=== PATIENT | male | born 1955 | race Caucasian/White ===

== ENCOUNTER → 2020-03-26 | Outpatient (CLI) | payer MEDICARE, OTHER | END | disposition home or self-care (01) | LOC: LAB SHORT 07:15 → LAB 07:15 | DX: D04.62 Carcinoma in situ of skin of left upper limb, including shoulder (principal); L57.0 Actinic keratosis | CPT/HCPCS: 88305 ==

== ENCOUNTER → 2020-04-20 | Outpatient (CLI) | payer MEDICARE, OTHER | END | disposition home or self-care (01) | LOC: LAB 16:02 → LAB SHORT 16:02 | DX: D22.5 Melanocytic nevi of trunk (principal) | CPT/HCPCS: 88305 ==

== ENCOUNTER → 2021-02-02 | Outpatient (CLI) | payer MEDICARE, OTHER | END | disposition home or self-care (01) | LOC: LAB 11:19 → LAB SHORT 11:19 | DX: D48.5 Neoplasm of uncertain behavior of skin (principal) | CPT/HCPCS: 88305 ==

== ENCOUNTER 2021-09-12 06:37 | Day surgery (SDC) | payer MEDICARE, OTHER ==
[~2021-09-12] VITALS: Ht 190.5 cm; Wt 129.3 kg
[2021-09-12] MEDS ORDERED: Prinivil10 MG (06:56)
[2021-09-12] MEDS ORDERED: ATOR80 (06:56)
[2021-09-12] MEDS ORDERED: TAMS.4ER (06:57)
[2021-09-12] MEDS ORDERED: XARELTO20 MG (06:57)
[2021-09-12] MEDS ORDERED: SYMBICORT 160-4.6 GM (06:57)
[2021-09-12] MEDS ORDERED: TIOT18 (06:58)
--- NOTE | 2021-09-12 07:29 | NUR ---
09/12/21 0729 ALEK MOHAMUD 2 ATTEMPTS AT IV. FIRST ATTEMPT BY MA IN R HAND INFILTRATED. SECOND ATTEMPT BY MA IN R FOREARM SUCCESSFUL.
== END 2021-09-12 10:12 | disposition home or self-care (01) ==
LOC: ORSCSDS 06:37
DX: R19.7 Diarrhea, unspecified (principal); K21.9 Gastro-esophageal reflux disease without esophagitis; R19.5 Other fecal abnormalities; Z86.010 Personal history of colon polyps; K22.70 Barrett's esophagus without dysplasia; K31.7 Polyp of stomach and duodenum; D12.2 Benign neoplasm of ascending colon; D12.4 Benign neoplasm of descending colon; D12.5 Benign neoplasm of sigmoid colon; K62.5 Hemorrhage of anus and rectum; K62.1 Rectal polyp; K64.4 Residual hemorrhoidal skin tags; I10 Essential (primary) hypertension; I48.91 Unspecified atrial fibrillation; Z79.01 Long term (current) use of anticoagulants; Z87.891 Personal history of nicotine dependence; J44.9 Chronic obstructive pulmonary disease, unspecified; G47.33 Obstructive sleep apnea (adult) (pediatric); Z79.899 Other long term (current) drug therapy; E66.9 Obesity, unspecified; Z68.35 Body mass index [BMI] 35.0-35.9, adult
CPT/HCPCS: 88305; 88342; 93005; 93010; J0461; J2704; J7120

== ENCOUNTER 2023-08-31 16:24 | Emergency (ER) | payer MEDICARE, OTHER ==
[~2023-08-31] VITALS: Ht 195.6 cm; Wt 136.1 kg
[~2023-08-31 16:24] MED LIST changes: -ATOR80; +ATOR80 PO; -CEPH500 PO; -METF500C PO; -METO25ER PO; -OMEP20ER PO; -PREG75 PO; -Prinivil10 MG; +Prinivil10 MG PO; -SULTRIDS PO; -TAMS.4ER; +TAMS.4ER PO; -TRELEGY ELLIPT1 EAC1 INH; -XARELTO20 MG; +XARELTO20 MG PO
[2023-08-31] MEDS ORDERED: CefTRIAXone Sodium 1,000 MG in NS 100 ML IV ONE (17:50)
[2023-08-31] MEDS ORDERED: NS 1,000 ML IV SCH (21:05)
[2023-08-31 22:45] VITALS: BP 107/89
[2023-08-31] MEDS ORDERED: CEPH500 PO (23:06)
[2023-08-31] MEDS ORDERED: SULTRIDS PO (23:06)
[2023-09-01] MEDS ORDERED: PREG75 PO (16:15)
[2023-09-01] MEDS ORDERED: OMEP20ER PO (16:15)
[2023-09-01] MEDS ORDERED: METO25ER PO (16:16)
[2023-09-01] MEDS ORDERED: METF500C PO (16:16)
[2023-09-01] MEDS ORDERED: TRELEGY ELLIPT1 EAC1 INH (22:25)
== END 2023-08-31 23:20 | disposition home or self-care (01) ==
LOC: ER 16:24
DX: L03.317 Cellulitis of buttock (principal); A41.9 Sepsis, unspecified organism; E66.9 Obesity, unspecified; R00.0 Tachycardia, unspecified; Z88.0 Allergy status to penicillin; Z91.030 Bee allergy status; Z79.899 Other long term (current) drug therapy
CPT/HCPCS: 80053; 83605; 85025; 87040; 87076; 93005; 93010; 96365; 99284-25; J0696; J7030

== ENCOUNTER → 2023-08-31 | Outpatient (CLI) | payer MEDICARE, OTHER ==
[~2023-08-31] MED LIST: ATOR80; CEPH500 PO; METF500C PO; METO25ER PO; OMEP20ER PO; PREG75 PO; Prinivil10 MG; SULTRIDS PO; SYMBICORT 160-4.6 GM; TAMS.4ER; TIOT18; TRELEGY ELLIPT1 EAC1 INH; XARELTO20 MG
[2023-08-31 15:54] LABS: BASOPHILS ABSOLUTE AUTO 0.02 K/mm3 (0.00-0.23); BASOPHILS PERCENT AUTO 0 % (0-2); EOSINOPHILS ABSOLUTE AUTO 0.02 K/mm3 (0.00-0.68); EOSINOPHILS PERCENT AUTO 0 % (0-6); Hematocrit 44.1 % (37.0-53.0); Hemoglobin 14.5 g/dL (13.5-17.5); IMMATURE GRAN ABSOLUTE AUTO 0.05 K/mm3 (0.00-0.10); IMMATURE GRAN PERCENT AUTO 0 % (0-1); LYMPHOCYTES ABSOLUTE AUTO 0.75 K/mm3 (0.84-5.20); LYMPHOCYTES PERCENT AUTO 6 % (21-46); MONOCYTES ABSOLUTE AUTO 0.71 K/mm3 (0.16-1.47); MONOCYTES PERCENT AUTO 6 % (4-13); Mean Corpuscular HGB 32.3 pg (26.0-34.0); Mean Corpuscular HGB Conc 32.9 g/dL (31.5-36.5); Mean Corpuscular Volume 98 fL (80-100); Mean Platelet Volume 10.6 fL (9.1-12.4); NEUTROPHILS ABSOLUTE AUTO 10.55 K/mm3 (1.96-9.15); NEUTROPHILS PERCENT AUTO 87 % (41-73); Platelet Count 175 K/mm3 (150-400); RDW Coefficient Variation 12.7 % (11.7-14.2); RDW Standard Deviation 45.5 fL (35.1-46.3); Red Blood Cell Count 4.49 M/mm3 (4.30-5.90)
[2023-08-31 16:08] LABS: Albumin, Blood 3.9 g/dL (3.4-5.0); Albumin/Globulin Ratio 1.1 (0.8-1.8); Bilirubin, Total 1.1 mg/dL (0.1-1.0); Bun/Creatinine Ratio 11.8 (12.0-20.0); Calcium, Blood 9.6 mg/dL (8.5-10.1); Creatinine, Blood 1.36 mg/dL (0.60-1.20); Globulin, Blood 3.7 g/dL (2.2-4.0); Potassium, Blood 4.8 mmol/L (3.5-5.5); Total Protein, Blood 7.6 g/dL (6.4-8.2)
== END | disposition home or self-care (01) ==
LOC: LAB SHORT 15:51
PROVIDERS: Emergency Medicine
DX: A41.9 Sepsis, unspecified organism (principal); R00.0 Tachycardia, unspecified
CPT/HCPCS: 80053; 85025; 87040; 87076

== ENCOUNTER 2023-09-01 14:48 | Inpatient (IN) | payer MEDICARE, OTHER ==
[~2023-09-01] VITALS: Ht 190.5 cm; Wt 140.6 kg
[2023-09-01] VITALS (7 sets, daily range): BP systolic 80–127; BP diastolic 50–109
[~2023-09-01 14:48] MED LIST changes: +CEPH500 PO; +SULTRIDS PO
[2023-09-01 15:47] LABS: BASOPHILS ABSOLUTE AUTO 0.02 K/mm3 (0.00-0.23); BASOPHILS PERCENT AUTO 0 % (0-2); EOSINOPHILS ABSOLUTE AUTO 0.01 K/mm3 (0.00-0.68); EOSINOPHILS PERCENT AUTO 0 % (0-6); Hematocrit 38.3 % (37.0-53.0); Hemoglobin 12.8 g/dL (13.5-17.5); IMMATURE GRAN ABSOLUTE AUTO 0.11 K/mm3 (0.00-0.10); IMMATURE GRAN PERCENT AUTO 1 % (0-1); LYMPHOCYTES PERCENT AUTO 7 % (21-46); MONOCYTES ABSOLUTE AUTO 0.82 K/mm3 (0.16-1.47); MONOCYTES PERCENT AUTO 7 % (4-13); Mean Corpuscular HGB 32.8 pg (26.0-34.0); Mean Corpuscular HGB Conc 33.4 g/dL (31.5-36.5); Mean Corpuscular Volume 98 fL (80-100); Mean Platelet Volume 11.3 fL (9.1-12.4); NEUTROPHILS ABSOLUTE AUTO 10.27 K/mm3 (1.96-9.15); NEUTROPHILS PERCENT AUTO 85 % (41-73); Platelet Count 160 K/mm3 (150-400); RDW Coefficient Variation 12.8 % (11.7-14.2); RDW Standard Deviation 45.6 fL (35.1-46.3); White Blood Cell Count 12.03 K/mm3 (4.00-11.30)
[2023-09-01 15:57] LABS: Albumin, Blood 3.3 g/dL (3.4-5.0); Albumin/Globulin Ratio 0.9 (0.8-1.8); Bilirubin, Total 0.8 mg/dL (0.1-1.0); Bun/Creatinine Ratio 15.8 (12.0-20.0); Creatinine, Blood 1.39 mg/dL (0.60-1.20); Globulin, Blood 3.6 g/dL (2.2-4.0); Total Protein, Blood 6.9 g/dL (6.4-8.2)
[2023-09-01] MEDS ORDERED: PREG75 PO (16:15)
[2023-09-01] MEDS ORDERED: OMEP20ER PO (16:15)
[2023-09-01] MEDS ORDERED: METO25ER PO (16:16)
[2023-09-01] MEDS ORDERED: METF500C PO (16:16)
[2023-09-01] MEDS ORDERED: TRELEGY ELLIPT1 EAC1 INH (22:25)
[2023-09-02] VITALS (52 sets, daily range): BP systolic 82–145; BP diastolic 39–118
[2023-09-02 04:02] LABS: BASOPHILS ABSOLUTE AUTO 0.01 K/mm3 (0.00-0.23); BASOPHILS PERCENT AUTO 0 % (0-2); EOSINOPHILS ABSOLUTE AUTO 0.01 K/mm3 (0.00-0.68); EOSINOPHILS PERCENT AUTO 0 % (0-6); Hematocrit 34.7 % (37.0-53.0); Hemoglobin 11.6 g/dL (13.5-17.5); IMMATURE GRAN ABSOLUTE AUTO 0.07 K/mm3 (0.00-0.10); IMMATURE GRAN PERCENT AUTO 1 % (0-1); LYMPHOCYTES ABSOLUTE AUTO 0.74 K/mm3 (0.84-5.20); LYMPHOCYTES PERCENT AUTO 9 % (21-46); MONOCYTES PERCENT AUTO 8 % (4-13); Mean Corpuscular HGB Conc 33.4 g/dL (31.5-36.5); Mean Corpuscular Volume 99 fL (80-100); NEUTROPHILS ABSOLUTE AUTO 7.19 K/mm3 (1.96-9.15); NEUTROPHILS PERCENT AUTO 83 % (41-73); Platelet Count 133 K/mm3 (150-400); RDW Coefficient Variation 12.8 % (11.7-14.2); Red Blood Cell Count 3.52 M/mm3 (4.30-5.90); White Blood Cell Count 8.72 K/mm3 (4.00-11.30)
[2023-09-02 04:15] LABS: Albumin, Blood 2.9 g/dL (3.4-5.0); Albumin/Globulin Ratio 0.9 (0.8-1.8); Bilirubin, Total 0.7 mg/dL (0.1-1.0); Bun/Creatinine Ratio 12.8 (12.0-20.0); Calcium, Blood 8.2 mg/dL (8.5-10.1); Creatinine, Blood 1.33 mg/dL (0.60-1.20); Globulin, Blood 3.2 g/dL (2.2-4.0); Magnesium, Blood 1.5 mg/dL (1.6-2.4); Phosphorus, Blood 2.8 mg/dL (2.5-4.9); Potassium, Blood 4.2 mmol/L (3.5-5.5); Total Protein, Blood 6.1 g/dL (6.4-8.2)
[2023-09-02 04:17] LABS: International Normalized Ratio 1.25
--- NOTE | 2023-09-02 06:11 | NUR ---
SHIFT SUMMARY PATIENT TO ICU 10 FROM OR AT 2200. PATIENT LETHARGIC UPON ARRIVAL, ABLE TO WAKE UP AND ORIENTED X3-4 A COUPLE HOURS LATER. 02 SATS 93% ON 3L NC. PATIENTS BROUGHT IN HOME CPAP AND PATIENT WORE THAT THROUGH THE NIGHT WHILE SLEEPING WITH 5L OXYGEN. LS COURSE T/O, RR 20s. HR A.FIB 70s. BP STABLE. DENIES CP/PRESSURE. S/P DEBRIDEMENT OF RIGHT BUTTOCKS, DRESSING CHANGED ONCE THIS SHIFT AND PICTURES IN CHART, MARKED REDNESS AROUND WOUND. BLADDER SCAN AND STRAIGHT CATH DONE ONCE THIS SHIFT WITH 1,000 MLS OUT. CONDOM CATH REPLACED. MEDICATED FOR PAIN PER EMAR. PATIENT ABLE TO SHIFT SELF IN BED, ASSISTANCE PRN. REPLACING MAG THIS AM. CALL LIGHT IN REACH
--- NOTE | 2023-09-02 10:24 | NUR ---
PT AWAKE AND ABLE TO ANSWER QUESTIONS. PT IS VAGUE ANSWERING QUESTIONS. WILL STATE NO TO PAIN BUT APPEARS UNCOMFORTABLE. PT ALSO STATES HIS ABD IS UNCOMFORTABLE BUT HE THINKS HE JUST NEEDS TO HAVE A BM. DR. DURAN AT BEDSIDE TO DO DRESSING CHANGE. PREMEDICATED WITH FENTANYL. DR. DURAN AWARE OF ABD DISCOMFORT. WOUND PACKED WITH KERLEX SOAKED IN DAKINS SOLUTION, THEN 4X4 GAUZE, AND COVERED WITH MEPILEX. WILL GET PT TO [facility] WHEN HE IS READY TO HAVE BM. AT BEDSIDE UPDATED.
[2023-09-02 15:05] LABS: Anti-Xa UFH, PHA Monitoring 0.35 IU/mL
[2023-09-02 15:29] LABS: Albumin, Blood 2.9 g/dL (3.4-5.0); Anion Gap 5 mmol/L (6-16); Blood Urea Nitrogen 16 mg/dL (8-24); Bun/Creatinine Ratio 12.8 (12.0-20.0); CO2, Blood 24 mmol/L (21-32); Calcium, Blood 8.4 mg/dL (8.5-10.1); Chloride, Blood 107 mmol/L (98-108); Creatinine, Blood 1.25 mg/dL (0.60-1.20); Glomerular Filtration Rate 63 (60-); Glucose, Blood 167 mg/dL (70-99); Phosphorus, Blood 1.6 mg/dL (2.5-4.9); Potassium, Blood 4.2 mmol/L (3.5-5.5); Sodium, Blood 136 mmol/L (136-145)
--- NOTE | 2023-09-02 18:39 | NUR ---
SUMMARY PT A/O X3 TODAY UNTIL THIS EVENING. NOW HE IS STARTING TO PICK AT LINES AND ACTING IF HE IS SMOKING SPO2 PROBE. REDIRECTABLE JUST RESTLESS. PT DENIES PAIN ALL DAY BUT WILL GROAN AND GRIMACE IN BED. GAVE FENTANYL 2X ONE FOR DRESSING CHANGE WITH DR. DURAN AND ANOTHER THIS EVENING. MEPILEX CHANGED THIS AFTERNOON DUE TO SEROSANG DRAINAGE LEAKING THROUGH. STARTED ON HEPARIN GTT TODAY. [place] [facility] [place]. PT IS WEAK. USED FWW AND 2 PERSON ASSIST. GETS SOB WITH EXERTION, DOES NOT DESAT BUT FACE TURNS PURPLE. AT TIMES PT WILL START SHIVERING AND GETS MOTTLED OVER EXTREMITIES. NOTIFIED DR. KELLOGG WHO IMMEDIATELY CAME TO BEDSIDE AND NEW ORDERS RECEIVED. ECHO AND CXR DONE TODAY. VITALS HAVE BEEN STABLE AND REMAIN STABLE EVEN WHEN PT IS SOB. SHIVERING AND MOTTLING SUBSIDES. AT BEDSIDE MOST OF DAY AND UPDATED T/O. PT WILL HAVE 1:1 SITTER TONIGHT FOR REDIRECTION AND TO PRESERVE LINES. NO SIGN OF DISTRESS.
--- NOTE | 2023-09-02 19:15 | NUR ---
ASSUMPTION OF CARE RECEIVED INTO CARE. REPORT GIVEN BY DAY RN. PT AWAKE LYING IN BED WATCHING TV. SITTER AT BEDSIDE. VSS. HEPARIN INFUSING, CHECKED WITH EMAR. NO VOICED CONCERNS AT THIS TIME. CALL CHAMPAGNE IN REACH.
[2023-09-03] VITALS (14 sets, daily range): BP systolic 123–181; BP diastolic 64–128
[2023-09-03 05:20] LABS: BASOPHILS ABSOLUTE AUTO 0.01 K/mm3 (0.00-0.23); BASOPHILS PERCENT AUTO 0 % (0-2); EOSINOPHILS ABSOLUTE AUTO 0.03 K/mm3 (0.00-0.68); EOSINOPHILS PERCENT AUTO 1 % (0-6); Hematocrit 35.1 % (37.0-53.0); Hemoglobin 11.5 g/dL (13.5-17.5); IMMATURE GRAN ABSOLUTE AUTO 0.04 K/mm3 (0.00-0.10); IMMATURE GRAN PERCENT AUTO 1 % (0-1); LYMPHOCYTES ABSOLUTE AUTO 0.52 K/mm3 (0.84-5.20); LYMPHOCYTES PERCENT AUTO 8 % (21-46); MONOCYTES ABSOLUTE AUTO 0.47 K/mm3 (0.16-1.47); MONOCYTES PERCENT AUTO 8 % (4-13); Mean Corpuscular HGB 32.4 pg (26.0-34.0); Mean Corpuscular HGB Conc 32.8 g/dL (31.5-36.5); Mean Corpuscular Volume 99 fL (80-100); Mean Platelet Volume 10.9 fL (9.1-12.4); NEUTROPHILS ABSOLUTE AUTO 5.23 K/mm3 (1.96-9.15); NEUTROPHILS PERCENT AUTO 83 % (41-73); Platelet Count 136 K/mm3 (150-400); RDW Coefficient Variation 12.8 % (11.7-14.2); RDW Standard Deviation 46.8 fL (35.1-46.3); Red Blood Cell Count 3.55 M/mm3 (4.30-5.90)
[2023-09-03 05:57] LABS: Alanine Aminotransfer (ALT/SGP 85 U/L (12-78); Albumin, Blood 2.8 g/dL (3.4-5.0); Albumin/Globulin Ratio 0.7 (0.8-1.8); Alk Phos 62 U/L (50-136); Anion Gap 7 mmol/L (6-16); Aspartate Aminotrans (AST/SGOT 80 U/L (12-37); Bilirubin, Total 0.6 mg/dL (0.1-1.0); Blood Urea Nitrogen 15 mg/dL (8-24); Bun/Creatinine Ratio 12.3 (12.0-20.0); CO2, Blood 23 mmol/L (21-32); Calcium, Blood 8.3 mg/dL (8.5-10.1); Chloride, Blood 106 mmol/L (98-108); Creatinine, Blood 1.22 mg/dL (0.60-1.20); Globulin, Blood 3.8 g/dL (2.2-4.0); Glomerular Filtration Rate 65 (60-); Glucose, Blood 208 mg/dL (70-99); Magnesium, Blood 1.9 mg/dL (1.6-2.4); Phosphorus, Blood 2.4 mg/dL (2.5-4.9); Potassium, Blood 3.8 mmol/L (3.5-5.5); Sodium, Blood 136 mmol/L (136-145); Total Protein, Blood 6.6 g/dL (6.4-8.2); Vancomycin, Trough 15.1 ug/mL (5.0-10.0)
--- NOTE | 2023-09-03 06:27 | NUR ---
SHIFT SUMMARY ALERT AND ORIENTED. HAD SITTER FOR MOST NIGHT BUT WAS SENT HOME PT DOES NOT REQUIRE A SITTER. TYLENOL GIVEN X2 PER EMAR FOR HEADACHES. TYLENOL EFFECTIVE. REMAIN IN AFIB, BP STABLE. HAD A 6 BEAT RUN VTACH. HEPARIN INFUSION INCREASED PER PHARMACY. NEW PVAD INSERTED TO LEFT AC. DID NOT TOLERATE HAVING CPAP ON OVERNIGHT. REQUIRING 3-5L NC. CONDOM CATH CHANGED. ADEQUATE OUTPUT. GOOD ORAL INTAKE. DRESSING DRY AND INTACT TO BUTTOCKS. PT GETS HOT FLASHES THROUGHOUT NIGHT, VERY DIAPHORETIC, NO FEVER. NO VOICED CONCERNS AT THIS TIME. CALL CHAMPAGNE IN REACH.
--- NOTE | 2023-09-03 07:40 | NUR ---
ASSUMED CARE: REPORT RECEIVED FROM ALVARO Gee RN. ASSUMED CARE OF THIS PT AT APPROX 0700. ON ASSESSMENT, THE PT IS A&O TO ALL, PLEASANT & COOPERATIVE. PER REPORT, THE PT's DELIRIUM IS IMPROVING, ALTHOUGH HE OCCASIONALLY MAKES NONSENSICAL STATEMENTS, HE IS EASILY REORIENTED BY STAFF. LS DIM IN BASES, PT ON 2L NC W/ O2 SATS > 92%. DYSPNEIC W/ EXERTION. MONITOR SHOWS AFIB W/ HR 80-90s, BP STABLE. PT DENIES GI COMPLAINTS, IS TOLERATING PO INTAKE WELL. CONDOM CATH IN PLACE W/ YELLOW URINE DRAINING. SKIN CONDITION OVERALL FRAGILE, WOUND TO RIGHT BUTTOCKS W/ DRESSING CDI. SKIN OTHERWISE ECCHYMOTIC. WILL CONTINUE TO MONITOR & UPDATE NEEDED.
--- NOTE | 2023-09-03 09:10 | NUR ---
DR DURAN: PROVIDER AT BEDSIDE TO EVAL PT THIS AM. FENTANYL ONE TIME DOSE ORDERED PRE-PROCEDURE FOR WOUND DRESSING CHANGE. HE HAS DEMONSTRATED TO THE PT's & DAUGTER HOW TO CARE FOR THIS WOUND. DRESSING REPACKED W/ DAKIN SOAKED KERLEX WET-TO-DRY DRESSING. 4x4 GAUZE PLACED OVER PACKING & SMALL SACRAL MEPILEX PLACED TO COVER SITE. PROVIDER STS THE PT IS APPROPRIATE TO STATUS CHANGE OUT OF THE ICU, WILL LEAVE TO EFM PROVIDER DISCRETION REGARDING PCU OR SURGICAL STATUS. HE WOULD LIKE THE PT TO REMAIN OFF OF HIS HOME XARELTO STILL, ON HEPARIN DRIP FOR CHRONIC AFIB.
--- NOTE | 2023-09-03 17:29 | NUR ---
SHIFT SUMMARY: NO ACUTE CHANGES SINCE PRIOR UPDATES. PT REMAINS A&O TO ALL, IS IMPULSIVE AT TIMES ATTEMPTING TO GET OOB W/O ASSISTANCE. EASILY REDIRECTABLE. LS DIM IN BASES, PT ON 2L NC W/ O2 SATS > 92%. MONITOR SHOWS AFIB W/ HR 80-90s, BP STABLE. PT HAS NO GI COMPLAINTS, IS TOLERATING PO INTAKE WELL. VOIDS W/O DIFFICULTY USING URINAL - CONDOM CATH REMOVED AT TIME OF BATH. SKIN CONDITION OVERALL INTACT, Q2 REPOSITIONING TO MAINTAIN SKIN INTEGRITY. MEPILEX TO BUTTOCKS CHANGED W/ BATH, PACKING REMAINS CDI. WILL CONTINUE TO MONITOR & REPORT OFF TO ONCOMING RN.
--- NOTE | 2023-09-03 19:15 | NUR ---
ASSUMPTION OF CARE RECEIVED INTO CARE, BEDSIDE REPORT GIVEN BY DAY RN. PT AWAKE LYING IN BED WATCHING TV. HEPARIN INFUSING AT 17, CHECKED WITH EMAR/ORDER. ON TELE REMAINS IN AFIB. SPO2>95 ON 2L NC. NO VOICED CONCERNS BY PT AT THIS TIME, CALL CHAMPAGNE IN REACH. SEE SHIFT ASSESSMENT.
--- NOTE | 2023-09-04 00:40 | NUR ---
TRASNFER OF CARE REPORT GIVEN TO SURGICAL NURSE. PT TRANSFERRED TO ROOM 211 VIA WHEELCHAIR. ALL BELONGINGS/CPAP MACHINE BROUGHT WITH PT. NO CONCERNS.
[2023-09-04 00:41] VITALS: BP 160/84
--- NOTE | 2023-09-04 01:30 | NUR ---
ICU TRANSFER PT ARRIVAL TO UNIT AT APPROX 0040 VIA W/C. ABLE TO STAND AND TRANSFER FROM W/C TO BED WITH 1 ASSIST. ON 3L 02 VIA SC. ENCOURAGED TO USE HOME CPAP MACHINE, BUT PT DECLINED. WAS SOB WITH EXERTION, BUT PT RECOVERED QUICKLY AT REST. NEW IV PLACED R HAND IV WAS LEAKING UPON ARRIVAL. HEPARIN INFUSION SETTINGS VERIFIED WITH EXTRACT MIXER. IV ABX INFUSING PER ORDERS. PILLOW PLACED UNDER BUTTOCKS FOR COMFORT. UNABLE TO VISUALIZE I&D DRESSING AT THIS TIME. PT ALERT AND ORIENTED TO SELF, PLACE, SITUATION, AND FOLLOWING DIRECTIONS BUT WAS HALLUCINATING AND SAYING THAT THERE WERE ANIMALS COMING OUT OF THE CEILING AND THAT THERE WERE SNAKES IN THE ROOM. PT EASILY REASSURED AND REORIENTED. BED ALARM PLACED FOR SAFETY. PT HAS USED HIS CALL LIGHT APPROPRIATELY.
[2023-09-04 02:34] VITALS: BP 135/75
[2023-09-04 03:30] LABS: BASOPHILS ABSOLUTE AUTO 0.02 K/mm3 (0.00-0.23); BASOPHILS PERCENT AUTO 0 % (0-2); EOSINOPHILS ABSOLUTE AUTO 0.06 K/mm3 (0.00-0.68); EOSINOPHILS PERCENT AUTO 1 % (0-6); Hematocrit 33.8 % (37.0-53.0); Hemoglobin 11.2 g/dL (13.5-17.5); IMMATURE GRAN ABSOLUTE AUTO 0.05 K/mm3 (0.00-0.10); IMMATURE GRAN PERCENT AUTO 1 % (0-1); LYMPHOCYTES ABSOLUTE AUTO 0.76 K/mm3 (0.84-5.20); LYMPHOCYTES PERCENT AUTO 12 % (21-46); MONOCYTES ABSOLUTE AUTO 0.59 K/mm3 (0.16-1.47); MONOCYTES PERCENT AUTO 9 % (4-13); Mean Corpuscular HGB 32.3 pg (26.0-34.0); Mean Corpuscular HGB Conc 33.1 g/dL (31.5-36.5); Mean Corpuscular Volume 97 fL (80-100); Mean Platelet Volume 10.7 fL (9.1-12.4); NEUTROPHILS ABSOLUTE AUTO 5.04 K/mm3 (1.96-9.15); NEUTROPHILS PERCENT AUTO 77 % (41-73); Platelet Count 158 K/mm3 (150-400); RDW Standard Deviation 46.3 fL (35.1-46.3); Red Blood Cell Count 3.47 M/mm3 (4.30-5.90); White Blood Cell Count 6.52 K/mm3 (4.00-11.30)
--- NOTE | 2023-09-04 04:39 | NUR ---
SHIFT SUMMARY NO ACUTE CHANGES SINCE TRANSFER FROM ICU. PT HAS BEEN RESTLESS AND HAS BEEN UP AND DOWN OUT OF BED. R BUTTOCK DRESSING CHANGED X1 FOR MODERATE SS DRAINAGE. PT REPORTS TENDERNESS TO SITE, BUT DECLINES NEED FOR PAIN MEDICATIONS. IV ABX + HEPARIN GTT INFUSING PER ORDERS. 1 ASSIST WHEN OOB. REORIENTING PRN. BED ALARM REMAINS IN PLACE. PT OCCASSIONALLY USES CALL LIGHT. CALL LIGHT WITHIN REACH.
[2023-09-04 05:25] LABS: Alanine Aminotransfer (ALT/SGP 324 U/L (12-78); Albumin, Blood 2.7 g/dL (3.4-5.0); Albumin/Globulin Ratio 0.7 (0.8-1.8); Alk Phos 68 U/L (50-136); Anion Gap 4 mmol/L (6-16); Aspartate Aminotrans (AST/SGOT 234 U/L (12-37); Bilirubin, Total 0.7 mg/dL (0.1-1.0); Blood Urea Nitrogen 18 mg/dL (8-24); Bun/Creatinine Ratio 16.8 (12.0-20.0); CO2, Blood 26 mmol/L (21-32); Calcium, Blood 8.5 mg/dL (8.5-10.1); Chloride, Blood 107 mmol/L (98-108); Creatinine, Blood 1.07 mg/dL (0.60-1.20); Globulin, Blood 4.1 g/dL (2.2-4.0); Glomerular Filtration Rate 76 (60-); Glucose, Blood 168 mg/dL (70-99); Potassium, Blood 4.1 mmol/L (3.5-5.5); Sodium, Blood 137 mmol/L (136-145); Total Protein, Blood 6.8 g/dL (6.4-8.2); Vancomycin, Trough 15.8 ug/mL (5.0-10.0)
[2023-09-04 07:03] VITALS: BP 147/83
[2023-09-04 14:33] VITALS: BP 126/85
[2023-09-04 19:21] VITALS: BP 155/102
--- NOTE | 2023-09-04 19:57 | NUR ---
SHIFT SUMMARY PT A&OX3, VSS/RA, VOIDING, AMB INDEPENDENTLY IN ROOM/HALLWAY, SRUTHI PO, DENIES PAIN. FAMILY AT BEDSIDE T/O DAY. REPORT TO JAZMIN OCONNELL.
--- NOTE | 2023-09-05 01:41 | NUR ---
REPORT GIVEN TO ROOM 353 NURSE TO ASSUME CARE OF PT AFTER TRANSFER.
--- NOTE | 2023-09-05 02:05 | NUR ---
PT TRANSFERRED TO ROOM 353 WITH ALL PERSONAL BELONGINGS INCLUDING HOME CPAP. MEDICATIONS AND CHART SENT WITH PT.
[2023-09-05 02:22] VITALS: BP 125/78
--- NOTE | 2023-09-05 06:49 | NUR ---
SHIFT SUMMARY PT ADMIT THIS AM AFTER SURGERY I&D ON NECROTITIS ON RIGHT BUTTOCK. SLEPT AFTER ARRIVAL. VANCO STARTED AT 0600, AND REQUESTED HIS BREATHING TREATMENT. RT NOTIFIED. PT STABLE AND PLEASANT. WILL CONTINUE TO MONITOR.
[2023-09-05 07:27] VITALS: BP 125/91
[2023-09-05 08:28] LABS: BASOPHILS ABSOLUTE AUTO 0.02 K/mm3 (0.00-0.23); BASOPHILS PERCENT AUTO 0 % (0-2); EOSINOPHILS ABSOLUTE AUTO 0.07 K/mm3 (0.00-0.68); EOSINOPHILS PERCENT AUTO 1 % (0-6); Hematocrit 32.5 % (37.0-53.0); IMMATURE GRAN ABSOLUTE AUTO 0.03 K/mm3 (0.00-0.10); IMMATURE GRAN PERCENT AUTO 1 % (0-1); LYMPHOCYTES ABSOLUTE AUTO 0.69 K/mm3 (0.84-5.20); LYMPHOCYTES PERCENT AUTO 13 % (21-46); MONOCYTES ABSOLUTE AUTO 0.58 K/mm3 (0.16-1.47); MONOCYTES PERCENT AUTO 11 % (4-13); Mean Corpuscular HGB Conc 33.8 g/dL (31.5-36.5); Mean Corpuscular Volume 98 fL (80-100); Mean Platelet Volume 10.9 fL (9.1-12.4); NEUTROPHILS ABSOLUTE AUTO 3.77 K/mm3 (1.96-9.15); NEUTROPHILS PERCENT AUTO 73 % (41-73); Platelet Count 167 K/mm3 (150-400); RDW Coefficient Variation 12.9 % (11.7-14.2); RDW Standard Deviation 46.5 fL (35.1-46.3); Red Blood Cell Count 3.33 M/mm3 (4.30-5.90); White Blood Cell Count 5.16 K/mm3 (4.00-11.30)
[2023-09-05 09:04] LABS: Bun/Creatinine Ratio 16.9 (12.0-20.0); Creatinine, Blood 0.95 mg/dL (0.60-1.20); Potassium, Blood 3.9 mmol/L (3.5-5.5)
[2023-09-05 10:05] VITALS: BP 130/70
[2023-09-05 16:09] VITALS: BP 135/100
--- NOTE | 2023-09-05 18:23 | NUR ---
PT TRANSFERED TO ROOM 360 AND CARE WAS TAKEN OVER BY ANISH LEAL. PT AOX4 AND COOPERATIVE OF ALL CARE. WOUND WAS REPACKED AND BANDAGED AFTER IT WAS SOILED BY STOOL. PT TOLERATED WELL. PT TREATED FOR PAIN PER EMAR. PT HAS BEEN A STANDBY ASSIST AND IS DOING WELL. PT CAN MAKE NEEDS KNOWN AND HAS CALL LIGHT WITHIN REACH. NOT DISTRESS NOTED.
--- NOTE | 2023-09-05 18:54 | NUR ---
REPORT RECEIVED VERIFIED, PT A/O VSS, TRANSFER PT FROM 353 TO 360. NO C/O PAIN NO CHANGE IN CONDITION REPORT TO BE GIVEN TO RN.
[2023-09-05] MEDS ORDERED: CYMBALTA30 M2 PO (19:31)
[2023-09-05 19:54] VITALS: BP 145/90
[2023-09-06 05:14] VITALS: BP 140/72
[2023-09-06 05:16] LABS: Hematocrit 33.9 % (37.0-53.0); Hemoglobin 11.1 g/dL (13.5-17.5); Mean Corpuscular HGB 31.9 pg (26.0-34.0); Mean Corpuscular HGB Conc 32.7 g/dL (31.5-36.5); Mean Corpuscular Volume 97 fL (80-100); Mean Platelet Volume 11.3 fL (9.1-12.4); Platelet Count 203 K/mm3 (150-400); RDW Standard Deviation 46.4 fL (35.1-46.3); Red Blood Cell Count 3.48 M/mm3 (4.30-5.90)
[2023-09-06 05:38] LABS: Bun/Creatinine Ratio 23.4 (12.0-20.0); Creatinine, Blood 0.9 mg/dL (0.60-1.20); Potassium, Blood 3.6 mmol/L (3.5-5.5)
[2023-09-06 05:46] LABS: BAND PERCENT MAN 1 % (0-8); BASOPHILS PERCENT MAN 0 % (0-2); EOSINOPHILS ABSOLUTE MAN 0.21 K/mm3 (0.00-0.68); EOSINOPHILS PERCENT MAN 4 % (0-6); LYMPHOCYTES % ATYPICAL MANUAL 2 % (0-0); LYMPHOCYTES ABSOLUTE MAN 1.11 K/mm3 (0.84-5.20); LYMPHOCYTES PERCENT MAN 19 % (21-46); MONOCYTES ABSOLUTE MAN 0.21 K/mm3 (0.16-1.47); MONOCYTES PERCENT MAN 4 % (4-13); NEUTROPHILS ABSOLUTE MAN 3.76 K/mm3 (1.96-9.15); SEG NEUTROPHILS PERCENT MAN 70 % (41-73); TOTAL CELLS COUNTED 100
[2023-09-06 07:05] VITALS: BP 147/84
--- NOTE | 2023-09-06 07:40 | NUR ---
SHIFT SUMMARY: NIKKI IS A&OX4 WITH SOME EPISODES OF MILD CONFUSION NOTED, EASILY REDIRECTABLE. VSS, NO ACUTE EVENTS OVERNIGHT. HE IS USING THE URINAL WITHOUT DIFFICULTY, BUT DOES REPORT DIARRHEA. DRESSING TO RIGHT INTACT WITH SOME SHADOWING ON THE SIDE CLOSEST TO THE GLUTEAL FOLD. POWERGLIDE TO TUNG PATENT, IV TO RIGHT WRIST PATENT. HE IS TOLERATING PO INTAKE WELL AND USES THE CALL LIGHT APPROPRIATELY. HE IS A ONE-PERSON STANDBY ASSIST FOR AMBULATION. PT IS SITTING UP IN BED WITH THE CALL LIGHT IN REACH. REPORT WAS GIVEN TO DAY SHIFT RN.
[2023-09-06] MEDS ORDERED: VISBIOME 112.51 EACH PO (11:55)
[2023-09-06] MEDS ORDERED: CEFP200 PO (11:55)
[2023-09-06] MEDS ORDERED: DAKIN S TOP (11:55)
[2023-09-06] MEDS ORDERED: METR500 PO (11:56)
[2023-09-06] MEDS ORDERED: Cleocin HCl150 MG PO (11:56)
--- NOTE | 2023-09-06 12:00 | NUR ---
PATIENT D/C'D TO HOME WITH . DC INSTRUCTIONS AND EDUCATIONS DISCUSSED AND COPY PROVIDED. RX MEDICATIONS SENT TO [facility]. DEMONSTRATED WET TO DRY DRESSING CHANGEES AND TAUGHT HIW TO CHANGE DAILY. PATIENT DENIES ANY FURTHER QUESTIONS OR CONCERNS.
== END 2023-09-06 12:18 | disposition home health service (06) | DRG 853 ==
LOC: ER 14:48 → ICUE 18:35 → SURS 18:35 → ICUE 21:57 → SURS 09-04 00:25 → MEDS 09-05 02:10 → ENPENDDIS 09-06 10:42 → MEDS 09-06 12:18
PROVIDERS: Internal Medicine; Physician Assistant; Surgery; ADMIT Family Medicine
PROC: 0JB70ZZ Excision of Back Subcutaneous Tissue and Fascia, Open Approach (ICD-10-PCS; principal; 2023-09-01 21:00)
DX: A41.9 Sepsis, unspecified organism (principal); G92.8 Other toxic encephalopathy; I13.0 Hypertensive heart and chronic kidney disease with heart failure and stage 1 through stage 4 chronic kidney disease, or unspecified chronic kidney disease; I50.22 Chronic systolic (congestive) heart failure; L02.31 Cutaneous abscess of buttock; L03.317 Cellulitis of buttock; L03.315 Cellulitis of perineum; I48.91 Unspecified atrial fibrillation; E66.9 Obesity, unspecified; G47.33 Obstructive sleep apnea (adult) (pediatric); Z88.1 Allergy status to other antibiotic agents; Z91.030 Bee allergy status; Z79.811 Long term (current) use of aromatase inhibitors; Z79.01 Long term (current) use of anticoagulants; Z79.899 Other long term (current) drug therapy; Z68.37 Body mass index [BMI] 37.0-37.9, adult; J44.9 Chronic obstructive pulmonary disease, unspecified; Z86.711 Personal history of pulmonary embolism; Z85.528 Personal history of other malignant neoplasm of kidney; Z90.49 Acquired absence of other specified parts of digestive tract; Z98.890 Other specified postprocedural states; Z90.5 Acquired absence of kidney; Z79.84 Long term (current) use of oral hypoglycemic drugs; Z79.2 Long term (current) use of antibiotics; Z87.891 Personal history of nicotine dependence; N18.9 Chronic kidney disease, unspecified
CPT/HCPCS: 36415; 51701; 71045; 72193; 80048; 80053; 80069; 80202; 82947; 83605; 83735; 83880; 84100; 84484; 85025; 85520; 85610; 85730; 86850; 86900; 86901; 87040; 88305; 93005; 93010; 94640; 94660; 94664; 94760; 94762; 96365; 96375; 97162; 97166; 97530; 97535; 99285-25; A9270; C1751; C8929; J0330; J0692; J0696; J1644; J1940; J2250; J2704; J3010; J3370; J3475; J7030; J7050; Q9957; Q9967

== ENCOUNTER → 2024-05-19 | Outpatient (CLI) | payer MEDICARE, OTHER ==
[~2024-05-19] MED LIST changes: +CEFP200 PO; +CYMBALTA30 M2 PO; +Cleocin HCl150 MG PO; +DAKIN S TOP; +METF500C PO; +METO25ER PO; +METR500 PO; +OMEP20ER PO; +PREG75 PO; +TRELEGY ELLIPT1 EAC1 INH; +VISBIOME 112.51 EACH PO
== END ==
LOC: LAB SHORT 11:29 → LAB 11:29
DX: M86.9 Osteomyelitis, unspecified (principal)
CPT/HCPCS: 87070; 87071; 87075; 87077; 87186; 87205

== ENCOUNTER 2025-01-28 11:21 | Day surgery (SDC) | payer MEDICARE ==
[~2025-01-28] VITALS: Ht 193 cm; Wt 137.8 kg
[~2025-01-28 11:21] MED LIST changes: +Cyclobenzaprine5 MG PO; +EPIPEN0.3 MG/0.3 IM; +FURO40 PO; +Lactated Ringer's 1,000 ML IV ONE; +POTCHL20ER PO; +Prednisone10 MG PO; +TRELEGY ELLIPT1 EACH IH
[2025-01-28] MEDS ORDERED: propofoL 60 ML IV ONE (11:50)
[2025-01-28] MEDS ORDERED: TRELEGY ELLIPT1 EACH (13:04)
[2025-01-28] MEDS ORDERED: OZEMPIC1 MG/0.72 (13:06)
[2025-01-28] MEDS ORDERED: Lactated Ringer's 1,000 ML IV ONE (13:33)
[2025-01-28] MEDS ORDERED: propofoL 20 ML IV ONE (15:05)
[2025-01-28 15:07] VITALS: BP 112/70
== END 2025-01-28 15:30 | disposition home or self-care (01) ==
LOC: ORSCSDS 11:21
PROVIDERS: Specialist
PROC: 0DB78ZX Excision of Stomach, Pylorus, Via Natural or Artificial Opening Endoscopic, Diagnostic (ICD-10-PCS; principal; 2025-01-28 13:00)
PROC: 0DBN8ZX Excision of Sigmoid Colon, Via Natural or Artificial Opening Endoscopic, Diagnostic (ICD-10-PCS; principal; 2025-01-28 13:00)
PROC: 0DB58ZX Excision of Esophagus, Via Natural or Artificial Opening Endoscopic, Diagnostic (ICD-10-PCS; principal; 2025-01-28 13:00)
PROC: 0DBK8ZX Excision of Ascending Colon, Via Natural or Artificial Opening Endoscopic, Diagnostic (ICD-10-PCS; principal; 2025-01-28 13:00)
DX: K22.70 Barrett's esophagus without dysplasia (principal); K21.9 Gastro-esophageal reflux disease without esophagitis; Z12.11 Encounter for screening for malignant neoplasm of colon; Z86.0100 Personal history of colon polyps, unspecified; D12.2 Benign neoplasm of ascending colon; D12.5 Benign neoplasm of sigmoid colon; K44.9 Diaphragmatic hernia without obstruction or gangrene; K57.30 Diverticulosis of large intestine without perforation or abscess without bleeding; E11.9 Type 2 diabetes mellitus without complications; Z86.718 Personal history of other venous thrombosis and embolism; Z79.01 Long term (current) use of anticoagulants; G47.33 Obstructive sleep apnea (adult) (pediatric); E78.5 Hyperlipidemia, unspecified; I10 Essential (primary) hypertension; Z79.84 Long term (current) use of oral hypoglycemic drugs; Z79.899 Other long term (current) drug therapy; Z79.85 Long-term (current) use of injectable non-insulin antidiabetic drugs
CPT/HCPCS: 82947; 88305; 88341; 88342; J2704; J7120